=== PATIENT | female | born 1965 | race Two or more races ===

== ENCOUNTER 2021-04-04 08:37 | Emergency (ER) | payer MEDICAID, OTHER ==
[~2021-04-04] VITALS: Ht 172.7 cm; Wt 99.8 kg
[2021-04-04 15:17] VITALS: BP 155/112
== END 2021-04-04 15:39 | disposition home or self-care (01) ==
LOC: ER 08:37
DX: M50.30 Other cervical disc degeneration, unspecified cervical region (principal); M54.12 Radiculopathy, cervical region; Z88.0 Allergy status to penicillin
CPT/HCPCS: 72040; 93005